=== PATIENT | male | born 1965 | race Caucasian/White ===

== ENCOUNTER 2021-01-24 11:49 | Emergency (ER) | payer MEDICARE ==
[~2021-01-24] VITALS: Ht 172.7 cm; Wt 86.4 kg
[2021-01-24 11:51] VITALS: Ht 172.7 cm; Wt 86.4 kg
[2021-01-24 12:16] LABS: BASOPHILS 0.9 % (0-2); EOSINOPHILS 4.6 % (0-7); HEMOGLOBIN 12.2 g/dL (13.5-17.5); LYMPHOCYTES 17.2 % (15-50); MCH 29.4 pg (26.0-34.0); MCHC 33.1 g/dL (31.0-37.0); MCV 88.7 fL (80.0-100.0); MEAN PLATELET VOLUME 6.7 fL (7.4-10.4); MONOCYTES 6.7 % (2-11); NEUTROPHILS 70.6 % (40-80); PLATELET COUNT 293 10x3/uL (130-400); RBC 4.17 10x6/uL (4.20-6.10); RDW 14.7 % (11.5-14.5); WBC 8.4 10x3/uL (4.8-10.8)
[2021-01-24 12:27] LABS: CALC OSMOLALITY 286 mosm/kg (275-300); CALCIUM 8.1 mg/dL (8.5-10.1); CARBON DIOXIDE 27.7 mmol/L (21.0-32.0); CHLORIDE - SERUM 107 mmol/L (98-107); GLUCOSE 134 mg/dL (74-106); POTASSIUM - SERUM 3.6 mmol/L (3.5-5.1); SODIUM 141 mmol/L (136-145); UREA NITROGEN 23 mg/dL (7-18); eGFR NON AFRICAN AMERICAN 82 mL/min (90-120)
[2021-01-24 12:42] LABS: ALBUMIN 3.2 g/dL (3.4-5.0); ALKALINE PHOSPHATASE 98 U/L (30-120); ALT (SGPT) 32 U/L (10-68); BILIRUBIN - TOTAL 0.25 mg/dL (0.2-1.3); CKMB 28.5 U/L (0.0-3.6); CREATINE KINASE 1161 UL (21-232); MAGNESIUM - SERUM 1.8 mg/dL (1.8-2.4); PROTEIN - SERUM 6.5 g/dL (6.4-8.2); TROPONIN-I < 0.017 ng/mL (0.000-0.060)
[2021-01-24 13:18] VITALS: BP 118/73
[2021-01-24] MEDS ORDERED: ACETAMINOPHEN500 M1 PO (15:37)
[2021-01-24] MEDS ORDERED: IBUPROFEN800 MG PO (15:37)
[2021-01-24] MEDS ORDERED: CYCLOBENZAPRINE10 MG PO (15:37)
== END 2021-01-24 15:45 | disposition home or self-care (01) ==
LOC: D.ER 11:49
PROVIDERS: Family Medicine
DX: R74.8 Abnormal levels of other serum enzymes (principal); E86.0 Dehydration; S22.32XA Fracture of one rib, left side, initial encounter for closed fracture; X58.XXXA Exposure to other specified factors, initial encounter; F15.129 Other stimulant abuse with intoxication, unspecified; F17.210 Nicotine dependence, cigarettes, uncomplicated